=== PATIENT | male | born 1960 | race Two or more races ===

== ENCOUNTER 2018-05-13 14:22 | Inpatient (IN) | payer OTHER ==
[~2018-05-13] VITALS: Ht 180.3 cm; Wt 79.4 kg
[2018-05-13] MEDS ORDERED: CLONAZEPAM0.5 MG PO (15:00)
[2018-05-13] MEDS ORDERED: [UNRECOGNIZED DRUG - OTHER] PO (15:01)
[2018-05-13] MEDS ORDERED: RESTORIL30 M1 PO (15:01)
[2018-05-13] MEDS ORDERED: [UNRECOGNIZED DRUG - OTHER] PO (15:03)
[2018-05-13] MEDS ORDERED: LISINOPRIL PO (15:03)
[2018-05-13] MEDS ORDERED: XARELTO20 MG PO (15:04)
[2018-05-13] MEDS ORDERED: PRAVASTATIN PO (15:05)
[2018-05-19] MEDS ORDERED: DOCUSATE SODIU100 MG PO (11:49)
[2018-05-19] MEDS ORDERED: GABAPENTIN800 MG PO (11:49)
[2018-05-19] MEDS ORDERED: PERCOCET 5-3251 EACH PO (11:51)
[2018-05-19] MEDS ORDERED: RESTORIL30 M1 PO (11:51)
[2018-05-19] MEDS ORDERED: AMOX-CLAV 875-1 EACH PO (11:51)
== END 2018-05-20 16:07 | disposition home or self-care (01) | DRG 455 ==
LOC: O/R 05-19 04:49 → SURG 05-19 04:49 → SURH 05-19 13:00 → SURG 05-19 13:09 → SURH 05-19 13:58 → SURG 05-20 16:07
PROVIDERS: ADMIT Orthopaedic Surgery Orthopaedic Surgery of the Spine
PROC: 0SG1071 Fusion of 2 or more Lumbar Vertebral Joints with Autologous Tissue Substitute, Posterior Approach, Posterior Column, Open Approach (ICD-10-PCS; 2018-05-19)
PROC: 0SG00AJ Fusion of Lumbar Vertebral Joint with Interbody Fusion Device, Posterior Approach, Anterior Column, Open Approach (ICD-10-PCS; 2018-05-19)
PROC: 0ST20ZZ Resection of Lumbar Vertebral Disc, Open Approach (ICD-10-PCS; 2018-05-19)
PROC: 07DS3ZZ Extraction of Vertebral Bone Marrow, Percutaneous Approach (ICD-10-PCS; 2018-05-19)
PROC: 0SG10A0 Fusion of 2 or more Lumbar Vertebral Joints with Interbody Fusion Device, Anterior Approach, Anterior Column, Open Approach (ICD-10-PCS; principal; 2018-05-19 13:00)
DX: M47.26 Other spondylosis with radiculopathy, lumbar region (principal); M48.061 Spinal stenosis, lumbar region without neurogenic claudication; M51.16 Intervertebral disc disorders with radiculopathy, lumbar region; I10 Essential (primary) hypertension